=== PATIENT | female | born 1965 | race African-American/Black ===

== ENCOUNTER 2016-12-18 15:57 | Inpatient (IN) | payer MEDICAID ==
[~2016-12-18] VITALS: Ht 170.2 cm; Wt 152.2 kg
[~2016-12-18 15:57] MED LIST: DIPHENHYDRAMINE 50 MG/ML, 1ML ONE; NALOXONE 0.4 MG/ML, 1ML ONE; methylPREDNISolone SOD SUCC 125 MG/2 ML ONE
[2016-12-18] MEDS ORDERED: CEFD300C37 PO (16:24)
[2016-12-18] MEDS ORDERED: SIMV40TA3 PO (16:24)
[2016-12-18] MEDS ORDERED: OXYB5TAB7 PO (16:24)
[2016-12-18] MEDS ORDERED: LISI-170 PO (16:24)
[2016-12-18] MEDS ORDERED: ALPR-475 PO (16:24)
[2016-12-18] MEDS ORDERED: ASPI325T80 PO (16:24)
[2016-12-18] MEDS ORDERED: AMLO10TA2 PO (16:24)
[2016-12-18] MEDS ORDERED: LORA10TA62 PO (16:24)
[2016-12-18] MEDS ORDERED: TIZA4TAB PO (16:24)
[2016-12-18] MEDS ORDERED: CHLO25TA PO (16:24)
[2016-12-18] MEDS ORDERED: ACETAMINOPHEN 500 MG TABLET PO ONE (16:30)
[2016-12-18] MEDS ORDERED: PIPERACILLIN/TAZO/PMX 3.375GM 50 ML IVPB ONE (16:30)
[2016-12-18] MEDS ORDERED: SODIUM CHLORIDE 0.9% 1,000ML IVBOLUS ONE (16:30)
[2016-12-18] MEDS ORDERED: PLEASE ENTER ALLERGIES MC SCH ×2 (17:00)
[2016-12-18] MEDS ORDERED: PIPERACILLIN/TAZO/PMX 3.375GM 50 ML ONE (17:52)
[2016-12-18] MEDS ORDERED: ACETAMINOPHEN 500 MG TABLET ONE (17:52)
[2016-12-18 17:59] LABS: HEMATOCRIT 32.4 % (34.6-47.8); HEMOGLOBIN 10.6 g/dL (11.7-16.4); WHITE BLOOD COUNT 28.5 x10^3/uL (3.4-10)
[2016-12-18 18:04] LABS: DIFF TOTAL CELLS COUNTED 100 CELL DIFF
[2016-12-18 18:11] LABS: ASPARTATE AMINO TRANSFERASE 23 U/L (15-37); BLOOD UREA NITROGEN 30 mg/dL (7-18)
[2016-12-18 18:18] LABS: IS PT STATUS REG ER OR PRE ER? YES
[2016-12-18 19:01] LABS: VERIFY COUNTS? YES
[2016-12-18 19:05] LABS: ANISOCYTOSIS 1+; HYPOCHROMIA 1+; MICROCYTOSIS 1+; POLYCHROMASIA 1+
[2016-12-18] MEDS ORDERED: BISACODYL 10 MG SUPP PR PRN (22:00)
[2016-12-18] MEDS: HEPARIN 5,000 UNITS/ML, 1ML SQ SCH (22:00)
[2016-12-18] MEDS ORDERED: ONDANSETRON 2MG/ML, 2ML IVPush PRN (22:00)
[2016-12-18] MEDS ORDERED: SIMVASTATIN 40 MG TABLET PO SCH (22:00)
[2016-12-18] MEDS ORDERED: hydrALAzine 20 MG/ML, 1ML IVPush PRN (22:00)
[2016-12-18] MEDS ORDERED: POLYETHYLENE GLYCOL 17 GM PACKET PO PRN (22:00)
[2016-12-18] MEDS: OXYBUTYNIN CHLORIDE 5 MG TABLET PO SCH (22:00)
[2016-12-18] MEDS ORDERED: ACETAMINOPHEN 325 MG TABLET PO PRN (22:00)
[2016-12-18] MEDS: TIZANIDINE 4MG TABLET PO SCH (22:00)
[2016-12-18 22:22] LABS: FERRITIN 555.8 ng/mL (8-252)
[2016-12-18 22:25] VITALS: BP 101/66
[2016-12-19] MEDS: PIPERACILLIN/TAZO/PMX 3.375GM 50 ML IV SCH ×5 (00:25→22:12)
[2016-12-19] MEDS: NS + 20MEQ KCL 1,000 ML IV SCH ×2 (00:25→08:36)
[2016-12-19 01:34] VITALS: BP 123/62
[2016-12-19] MEDS: HEPARIN 5,000 UNITS/ML, 1ML SQ SCH ×2 (05:49→14:26)
[2016-12-19 05:52] LABS: HEMOGLOBIN 9.8 g/dL (11.7-16.4); WHITE BLOOD COUNT 24.1 x10^3/uL (3.4-10)
[2016-12-19 06:18] LABS: ASPARTATE AMINO TRANSFERASE 25 U/L (15-37); BLOOD UREA NITROGEN 30 mg/dL (7-18)
[2016-12-19] MEDS: TIZANIDINE 4MG TABLET PO SCH ×2 (08:36→22:12)
[2016-12-19] MEDS: OXYBUTYNIN CHLORIDE 5 MG TABLET PO SCH ×3 (08:37→22:13)
[2016-12-19] MEDS: AMLODIPINE 5 MG TABLET PO SCH (08:37)
[2016-12-19] MEDS: ASPIRIN 325 MG TABLET PO SCH (08:38)
[2016-12-19] MEDS: LORATADINE 10 MG TABLET PO SCH (08:38)
[2016-12-19] MEDS: SENNA/DOCUSATE TABLET PO SCH (08:38)
[2016-12-19 09:00] VITALS: BP 123/88
[2016-12-19] MEDS ORDERED: LINEZOLID PMX 600MG/300ML 300 ML IV SCH (11:00)
[2016-12-19] MEDS: IRON SUCROSE COMPLEX 100MG/5ML IV SCH (12:16)
[2016-12-19 13:45] VITALS: BP 109/69
[2016-12-19] MEDS ORDERED: DIPHENHYDRAMINE 50 MG/ML, 1ML IVPush ONE (14:30)
[2016-12-19] MEDS ORDERED: FAMOTIDINE 20 MG/2 ML IVPush ONE (14:30)
[2016-12-19] MEDS ORDERED: methylPREDNISolone SOD SUCC 125 MG/2 ML IVPush ONE (14:30)
[2016-12-19 14:52] VITALS: BP 104/69
[2016-12-19] MEDS ORDERED: FUROSEMIDE 40 MG/4 ML IV ONE (15:00)
[2016-12-19] MEDS: LACTATED RINGERS 1,000 ML IV SCH (16:21)
[2016-12-19] MEDS ORDERED: MIDAZOLAM 1 MG/ML, 2ML ONE (19:36)
[2016-12-19] MEDS ORDERED: FENTANYL PF 100 MCG/2ML ONE (19:36)
[2016-12-19] MEDS ORDERED: NEOSTIGMINE 1 MG/ML, 10ML ONE (19:45)
[2016-12-19] MEDS ORDERED: GLYCOPYRROLATE 0.2MG/1ML ONE (19:45)
[2016-12-19] MEDS ORDERED: ROCURONIUM 10 MG/ML ONE (19:45)
[2016-12-19] MEDS ORDERED: ONDANSETRON 2MG/ML, 2ML ONE (19:45)
[2016-12-19] MEDS ORDERED: PROPOFOL 10 MG/ML, 20ML ONE (19:45)
[2016-12-19 20:00] VITALS: BP 112/72
[2016-12-19] MEDS ORDERED: HYDROmorphone 1 MG/ML, 1ML IV PRN (20:30)
[2016-12-19] MEDS ORDERED: OXYcodone 5 MG/5 ML ORAL.SOL UDC PO PRN (20:30)
[2016-12-19] MEDS ORDERED: ACETAMINOPHEN 325 MG TABLET PO PRN (20:30)
[2016-12-19] MEDS ORDERED: FENTANYL PF 100 MCG/2ML IV PRN (20:30)
[2016-12-19] MEDS ORDERED: PROMETHAZINE 25 MG/ML, 1ML IV PRN (20:30)
[2016-12-19] MEDS: ATORVASTATIN 20 MG TABLET PO SCH (22:13)
[2016-12-20 02:00] VITALS: BP 112/80
[2016-12-20] MEDS: PIPERACILLIN/TAZO/PMX 3.375GM 50 ML IV SCH ×4 (04:09→21:54)
[2016-12-20 07:03] LABS: HEMATOCRIT 32.4 % (34.6-47.8); HEMOGLOBIN 10.4 g/dL (11.7-16.4)
[2016-12-20 07:15] LABS: BLOOD UREA NITROGEN 31 mg/dL (7-18)
[2016-12-20 08:16] VITALS: BP 124/86
[2016-12-20] MEDS: LACTATED RINGERS 1,000 ML IV SCH (09:00)
[2016-12-20] MEDS: SENNA/DOCUSATE TABLET PO SCH (09:00)
[2016-12-20] MEDS: LORATADINE 10 MG TABLET PO SCH (09:02)
[2016-12-20] MEDS: OXYBUTYNIN CHLORIDE 5 MG TABLET PO SCH ×3 (09:02→21:54)
[2016-12-20] MEDS: ASPIRIN 325 MG TABLET PO SCH (09:02)
[2016-12-20] MEDS: IRON SUCROSE COMPLEX 100MG/5ML IV SCH (09:02)
[2016-12-20] MEDS: TIZANIDINE 4MG TABLET PO SCH ×2 (09:02→21:55)
[2016-12-20] MEDS: AMLODIPINE 5 MG TABLET PO SCH (09:03)
[2016-12-20 15:12] VITALS: BP 120/75
[2016-12-20] MEDS: HEPARIN 5,000 UNITS/ML, 1ML SQ SCH ×2 (16:49→21:54)
[2016-12-20 20:00] VITALS: BP 115/62
[2016-12-20] MEDS: ATORVASTATIN 20 MG TABLET PO SCH (21:54)
[2016-12-20] MEDS: OXYcodone IR 5MG TABLET PO PRN (21:55)
[2016-12-21 01:59] VITALS: BP 104/65
[2016-12-21] MEDS: PIPERACILLIN/TAZO/PMX 3.375GM 50 ML IV SCH ×4 (04:02→21:43)
[2016-12-21] MEDS: HEPARIN 5,000 UNITS/ML, 1ML SQ SCH ×3 (05:04→21:43)
[2016-12-21 05:28] LABS: HEMOGLOBIN 10.4 g/dL (11.7-16.4); WHITE BLOOD COUNT 18.7 x10^3/uL (3.4-10)
[2016-12-21] MEDS: OXYcodone IR 5MG TABLET PO PRN ×3 (05:57→20:12)
[2016-12-21 06:30] LABS: BLOOD UREA NITROGEN 36 mg/dL (7-18)
[2016-12-21 07:02] LABS: DIFF TOTAL CELLS COUNTED 100 CELL DIFF
[2016-12-21 07:22] LABS: ANISOCYTOSIS 1+
[2016-12-21 07:25] VITALS: BP 105/74
[2016-12-21 07:33] LABS: VERIFY COUNTS? YES
[2016-12-21] MEDS: SENNA/DOCUSATE TABLET PO SCH (09:00)
[2016-12-21] MEDS: AMLODIPINE 5 MG TABLET PO SCH (09:35)
[2016-12-21] MEDS: LORATADINE 10 MG TABLET PO SCH (09:35)
[2016-12-21] MEDS: IRON SUCROSE COMPLEX 100MG/5ML IV SCH (09:35)
[2016-12-21] MEDS: ASPIRIN 325 MG TABLET PO SCH (09:36)
[2016-12-21] MEDS: TIZANIDINE 4MG TABLET PO SCH ×2 (09:36→20:12)
[2016-12-21] MEDS: OXYBUTYNIN CHLORIDE 5 MG TABLET PO SCH ×3 (09:36→20:12)
[2016-12-21 14:00] VITALS: BP 120/83
[2016-12-21] MEDS ORDERED: FLUCONAZOLE 100 MG TABLET PO ONE (14:30)
[2016-12-21 17:18] VITALS: BP 120/83
[2016-12-21 20:00] VITALS: BP 123/79
[2016-12-21] MEDS: ATORVASTATIN 20 MG TABLET PO SCH (20:12)
[2016-12-22 02:12] VITALS: BP 109/67
[2016-12-22] MEDS: PIPERACILLIN/TAZO/PMX 3.375GM 50 ML IV SCH ×2 (04:10→10:00)
[2016-12-22] MEDS: HEPARIN 5,000 UNITS/ML, 1ML SQ SCH ×2 (05:27→13:30)
[2016-12-22 05:46] LABS: BLOOD UREA NITROGEN 31 mg/dL (7-18)
[2016-12-22 05:46] LABS: HEMATOCRIT 33.8 % (34.6-47.8); WHITE BLOOD COUNT 13.1 x10^3/uL (3.4-10)
[2016-12-22 08:14] VITALS: BP 137/93
[2016-12-22] MEDS: SENNA/DOCUSATE TABLET PO SCH (09:00)
[2016-12-22] MEDS: TIZANIDINE 4MG TABLET PO SCH (09:03)
[2016-12-22] MEDS: OXYBUTYNIN CHLORIDE 5 MG TABLET PO SCH (09:04)
[2016-12-22] MEDS: AMLODIPINE 5 MG TABLET PO SCH (09:04)
[2016-12-22] MEDS: ASPIRIN 325 MG TABLET PO SCH (09:04)
[2016-12-22] MEDS: LORATADINE 10 MG TABLET PO SCH (09:04)
[2016-12-22] MEDS: IRON SUCROSE COMPLEX 100MG/5ML IV SCH (09:05)
[2016-12-22 13:19] VITALS: BP 113/81
[2016-12-22] MEDS ORDERED: LEVO500T47 PO (15:20)
[2016-12-22] MEDS ORDERED: OXYC5TAB3 PO (15:20)
== END 2016-12-22 16:08 | disposition home or self-care (01) | DRG 871 ==
LOC: ED 20:36 → EDIP 20:51 → 3NE 22:21
PROVIDERS: ADMIT Internal Medicine
PROC: 0T9B70Z Drainage of Bladder with Drainage Device, Via Natural or Artificial Opening (ICD-10-PCS; 2016-12-18)
PROC: 0T778DZ Dilation of Left Ureter with Intraluminal Device, Via Natural or Artificial Opening Endoscopic (ICD-10-PCS; principal; 2016-12-19 20:00)
DX: A41.9 Sepsis, unspecified organism (principal); E43 Unspecified severe protein-calorie malnutrition; N17.9 Acute kidney failure, unspecified; I13.0 Hypertensive heart and chronic kidney disease with heart failure and stage 1 through stage 4 chronic kidney disease, or unspecified chronic kidney disease; I50.32 Chronic diastolic (congestive) heart failure; D50.9 Iron deficiency anemia, unspecified; F12.90 Cannabis use, unspecified, uncomplicated; I48.91 Unspecified atrial fibrillation; N20.1 Calculus of ureter; N10 Acute pyelonephritis; E87.1 Hypo-osmolality and hyponatremia; Z68.43 Body mass index [BMI] 50.0-59.9, adult; E86.0 Dehydration; E66.01 Morbid (severe) obesity due to excess calories; E87.6 Hypokalemia; N30.20 Other chronic cystitis without hematuria; N18.9 Chronic kidney disease, unspecified; R65.20 Severe sepsis without septic shock; Z82.49 Family history of ischemic heart disease and other diseases of the circulatory system; Z83.3 Family history of diabetes mellitus; Z86.73 Personal history of transient ischemic attack (TIA), and cerebral infarction without residual deficits
CPT/HCPCS: 36415; 36556; 71010; 71250; 74000; 74176; 76000; 78582; 80048; 80053; 81001; 82728; 83540; 83550; 83605; 84145; 84484; 85025; 85610; 87040; 87070; 87086; 87205; 87324; 93005; 96365; J1644; J1756; J2020; J2250; J2310; J2405; J2543; J2704; J2710; J3010; J3480; J3490; A9540; A9558; C2617; C9898; J1200; J2930; J7030; J7120; S0028